=== PATIENT | male | born 1960 | race Caucasian/White ===

== ENCOUNTER 2021-11-07 18:02 | Emergency (ER) | payer OTHER ==
[2021-11-07] MEDS ORDERED: NORCO 5-325 TA1 EACH PO (21:18)
== END 2021-11-07 21:40 | disposition home or self-care (01) ==
LOC: FER 18:02
DX: S82.52XA Displaced fracture of medial malleolus of left tibia, initial encounter for closed fracture (principal); S82.832A Other fracture of upper and lower end of left fibula, initial encounter for closed fracture; F17.200 Nicotine dependence, unspecified, uncomplicated; Z23 Encounter for immunization; W19.XXXA Unspecified fall, initial encounter; X50.1XXA Overexertion from prolonged static or awkward postures, initial encounter; Y92.009 Unspecified place in unspecified non-institutional (private) residence as the place of occurrence of the external cause
CPT/HCPCS: 73610; 90471; 90715